=== PATIENT | male | born 1960 | race Caucasian/White ===

== ENCOUNTER → 2018-08-22 | Outpatient (CLI) | payer BC ==
[~2018-08-22] MED LIST: ANTIBIOTIC; ASPIRIN EC81 MG PO; KETOROLAC TROME10 MG PO; MULTI-VITAMIN1 EACH; NORCO 5-325 TA1 EACH PO; PANTOPRAZOLE SO40 MG PO; SUDAFED 12 HOU120 MG PO; ULTRAM50 MG PO; VITAMIN D
--- NOTE | 2018-08-22 08:46 | Diagnostic Imaging Report ---
PROCEDURE:X-RAY ABDOMEN - KUB COMPARISON:None. INDICATIONS:CALCULUS OF KIDNEY FINDINGS: Bowel gas partially obscures visualization of the kidney. A 1 mm hyperdensity projects over the left lower pole kidney. There are no calcifications projected over the expected course of the ureters or bladder. There is a non-obstructed bowel-gas pattern. There are no acute osseous abnormalities. The lung bases are clear. CONCLUSION: Punctate calcification overlying the left lower kidney may represent stone. No evidence of ureteral stone. Dictated by: JANNET HARDY M.D. on 08/22/2018 at 8:52 Electronically approved by: JANNET HARDY M.D. on 08/22/2018 at 8:52
== END ==
LOC: RAD 08:00
PROVIDERS: ATTEND Urology
DX: N20.0 Calculus of kidney (principal)
CPT/HCPCS: 74018